=== PATIENT | female | born 1955 | race Hispanic/Latino ===

== ENCOUNTER → 2022-06-26 | Outpatient (CLI) | payer MEDICARE | LOC: US 09:31 | PROVIDERS: ATTEND Internal Medicine Gastroenterology | DX: R10.10 Upper abdominal pain, unspecified (principal); R14.0 Abdominal distension (gaseous) | CPT/HCPCS: 76700 ==

== ENCOUNTER → 2022-10-17 | Outpatient (CLI) | payer MEDICARE ==
[~2022-10-17] MED LIST: ALBUTEROL0.63 MG/3 INH; ALENDRONATE SOD70 MG PO; ATORVASTATIN CA20 MG PO; CARVEDILOL12.5 MG PO; DECARA1250 MCG PO; FUROSEMIDE40 MG PO; LORATADINE10 MG PO; LOSARTAN POTASS25 MG PO; METFORMIN HCL500 MG PO; METOLAZONE5 MG PO; OMEPRAZOLE40 MG PO; QUESTRAN PACKET4 GM PO; TRESIBA100 UNIT/1 SC; TRULICITY4.5 MG/0.5 SC
== END ==
LOC: MRI 08:15
PROVIDERS: ATTEND Nurse Practitioner
DX: R10.11 Right upper quadrant pain (principal); R14.0 Abdominal distension (gaseous); R89.9 Unspecified abnormal finding in specimens from other organs, systems and tissues; Z68.29 Body mass index [BMI] 29.0-29.9, adult
CPT/HCPCS: 74181